=== PATIENT | male | born 1935 | race Caucasian/White ===

== ENCOUNTER 2020-07-17 07:39 | Day surgery (SDC) | payer MEDICARE, BC ==
[~2020-07-17] VITALS: Ht 177.8 cm; Wt 88.0 kg
[~2020-07-17 07:39] MED LIST: AMLO-496 PO; APOA20CA PO; ASPI-543 PO; CHOL100055 PO; COEN200C11 PO; DILT-104 PO; ESOM1CAP12 PO; MULT-688 PO; MULT-928 PO; MULT1TAB73 PO; ROSU5TAB5 PO
[2020-07-17] MEDS ORDERED: CIPROFLOXACIN 400MG/200ML 200 ML IV ONE (07:53)
[2020-07-17] MEDS ORDERED: ONDANSETRON HCL 4 MG/2 ML VIAL ONE (09:48)
[2020-07-17] MEDS ORDERED: fentaNYL CITRATE 100 MCG/2 ML VL ONE (09:48)
[2020-07-17] MEDS ORDERED: PROPOFOL 10 MG/ML 20 ML IV ONE (09:48)
[2020-07-17] MEDS ORDERED: SODIUM CHLORIDE LOCK 10 ML ONE (09:48)
[2020-07-17] MEDS ORDERED: MIDAZOLAM HCL 2MG/2ML 2ml VIAL (1mg/ml) ONE (09:48)
[2020-07-17] MEDS ORDERED: MORPHINE SULFATE 4 MG/ML SYR/VIAL IV PRN (10:15)
[2020-07-17] MEDS ORDERED: ONDANSETRON HCL 4 MG/2 ML VIAL IV PRN (10:15)
[2020-07-17] MEDS ORDERED: HYDROmorphone HCL 2 MG/ML VL IV PRN (10:15)
[2020-07-17] MEDS ORDERED: KETAMINE HCL 10 ML ONE (10:18)
[2020-07-17] MEDS ORDERED: IOHEXOL 300 MG/ML 100ML BOTTLE IJ ONE (12:16)
[2020-07-17 13:00] VITALS: BP 127/62
[2020-07-17 13:35] LABS: Albumin 3.3 g/dL (3.4-5.0); Calcium 8.2 mg/dL (8.5-10.1); Potassium 3.7 mmol/L (3.5-5.1)
[2020-07-17 13:39] LABS: BUN/Creatinine Ratio 13.8; Bilirubin, Total 0.4 mg/dL (0.2-1.0); Total Protein 6.8 g/dL (6.4-8.2)
== END 2020-07-17 14:30 | disposition home or self-care (01) ==
LOC: SUR 07:39
PROVIDERS: ATTEND Urology
DX: D49.4 Neoplasm of unspecified behavior of bladder (principal); C67.0 Malignant neoplasm of trigone of bladder; N30.80 Other cystitis without hematuria; I12.9 Hypertensive chronic kidney disease with stage 1 through stage 4 chronic kidney disease, or unspecified chronic kidney disease; N18.30 Chronic kidney disease, stage 3 unspecified; E78.5 Hyperlipidemia, unspecified; Z20.822 Contact with and (suspected) exposure to COVID-19; Z98.890 Other specified postprocedural states; Z79.899 Other long term (current) drug therapy; Z88.0 Allergy status to penicillin; Z88.8 Allergy status to other drugs, medicaments and biological substances; Z87.891 Personal history of nicotine dependence
CPT/HCPCS: 36415; 52234; 74178; 80053; 88305; J0744; J2250; J2405; J2704; J3010; Q9967; U0003

== ENCOUNTER 2022-04-08 08:37 | Day surgery (SDC) | payer MEDICARE, BC ==
[2022-04-05 11:21] LABS: Basophils # (auto) 0 10 ^3/uL (0-0.2); Basophils % (auto) 0.6 % (0.0-2.0); Eosinophils # (auto) 0.1 10 ^3/uL (0-0.8); Eosinophils % (auto) 1.8 % (0.0-7.0); Hemoglobin 12.4 g/dL (13.5-17.5); Mean Corpuscular Hemoglobin 30.9 pg (28.0-32.0); Mean Corpuscular Hgb Conc. 33.4 g/dL (32.0-36.0); Mean Corpuscular Volume 92.7 fL (80.0-100.0); Monocytes # (auto) 0.7 10 ^3/uL (0-1.3); Monocytes % (auto) 10.8 % (0.0-12.0); Neutrophils # (auto) 4.9 10 ^3/uL (1.6-8.6); Neutrophils % (auto) 71.8 % (37.0-80.0); Red Blood Cells 3.99 10^6/uL (4.5-5.90); Red Cell Distribution Width 14.7 % (11.8-14.3); White Blood Cell 6.8 10^3/uL (4.4-10.8)
[2022-04-05 11:56] LABS: INR 0.96 (0.9-1.15); Partial Thromboplastin Time 30.5 sec (24.6-33.4)
[2022-04-05 12:07] LABS: Albumin 3.8 g/dL (3.4-5.0); Calcium 8.7 mg/dL (8.5-10.1); Potassium 4.2 mmol/L (3.5-5.1)
[2022-04-05 12:11] LABS: BUN/Creatinine Ratio 16.4; Bilirubin, Total 0.4 mg/dL (0.2-1.0); Total Protein 6.9 g/dL (6.4-8.2)
[2022-04-05 13:41] LABS: Urine Bacteria NONE SEEN /hpf (None Seen); Urine Blood Negative /uL (Negative); Urine Specific Gravity 1.016 (1.001-1.035); Urine WBC 2 /hpf (0 - 3)
[~2022-04-08] VITALS: Ht 177.8 cm; Wt 87.1 kg
[~2022-04-08 08:37] MED LIST changes: +DOCU100T15 PO; +MULT-195 OR; -MULT-688 PO; -MULT1TAB73 PO
[2022-04-08] MEDS ORDERED: DexAMETHasone SOD PHOS 10MG/1ML VIAL INJ IV ONE (08:38)
[2022-04-08] MEDS ORDERED: mitoMYcin 40 MG in STERILE WATER 60 ML IS ONE (09:00)
[2022-04-08] MEDS ORDERED: MIDAZOLAM HCL 2MG/2ML 2ml VIAL (1mg/ml) ONE (09:24)
[2022-04-08] MEDS ORDERED: SODIUM CHLORIDE LOCK 10 ML ONE (09:24)
[2022-04-08] MEDS ORDERED: fentaNYL CITRATE 100 MCG/2 ML VL ONE (09:24)
[2022-04-08] MEDS ORDERED: ONDANSETRON HCL 4 MG/2 ML VIAL ONE (09:24)
[2022-04-08] MEDS ORDERED: PROPOFOL 10 MG/ML 20 ML IV ONE (09:24)
[2022-04-08] MEDS ORDERED: CIPROFLOXACIN 400MG/200ML 200 ML IV ONE (10:12)
[2022-04-08] MEDS ORDERED: MORPHINE SULFATE 4 MG/ML SYR/VIAL IV PRN (10:30)
[2022-04-08] MEDS ORDERED: METOCLOPRAMIDE HCL 5MG/ml INJ 2ml VIAL IV PRN (10:30)
[2022-04-08] MEDS ORDERED: HYDROmorphone HCL 2 MG/ML VL/or syr IV PRN ×2 (10:30)
[2022-04-08 12:30] VITALS: BP 133/67
== END 2022-04-08 12:50 | disposition home or self-care (01) ==
LOC: SUR 08:37
PROVIDERS: ATTEND Urology
DX: D49.4 Neoplasm of unspecified behavior of bladder (principal); I11.0 Hypertensive heart disease with heart failure; I50.9 Heart failure, unspecified; Z87.891 Personal history of nicotine dependence; Z79.899 Other long term (current) drug therapy; Z20.822 Contact with and (suspected) exposure to COVID-19
CPT/HCPCS: 36415; 52240; 53899; 80053; 81001; 85025; 85610; 85730; 87086; J0744; J1100; J2250; J2405; J2704; J3010; J9280; U0003